=== PATIENT | female | born 1990 | race Caucasian/White ===

== ENCOUNTER 2021-09-07 09:17 | Outpatient (CLI) | payer BC, SELFPAY ==
--- NOTE | 2021-09-07 09:15 | US_ITS ---
Patient: MAGDALENA DILLARD Facility:?[facility] Patient ID:?[id number] Site Patient ID:?[id number]. Site :?1990 Study:?US-OB Pelvis -09/07/2021 12:10:36 PM Ordering Physician:JERSON HENDERSON Final Report: INDICATION: Evaluate anatomy. COMPARISON: 06/24/2021 TECHNIQUE: Real time venegas scale imaging of the fetus was performed as well as color Doppler analysis of the umbilical vessels. FINDINGS: Sonographic imaging demonstrates a single living intrauterine gestation. Fetus demonstrates a regular cardiac rate of 161 beats per minute. Fetus has a vertex position. The placenta lies posteriorly. With transvaginal technique, the edge of the placenta is located 1.5 cm from the internal cervical os. Amniotic fluid volume appears normal. Single deepest vertical pocket: 3.5 cm. The cervix is closed and measures 3.9 cm in length. The composite ultrasound gestational age is calculated at 19 weeks 5 days with an estimated sonographic due date of 01/27/2022. The estimated weight is 305 grams which lies at the 12th %. The following biometric measurements were obtained: Biparietal diameter: 4.5 cm/19 weeks 5 days 22nd% Head circumference: 17.4 cm/20 weeks 0 days 21st% Abdominal circumference: 14.1 cm/19 weeks 4 days 17th% Femur length: 3.1 cm/19 weeks 5 days 20th% The HC/AC ratio measures: 1.23 range (1.08-1.26) On anatomic survey, there is a normal appearance of the cavum septi pellucidi, cisterna magna and cerebellum. Mild ventriculomegaly may be present measuring up to 13 millimeters. The nose, lips, and facial profile appear normal. The cervical, thoracic and lumbar spine are well visualized and appear normal. There is a normal four-chamber heart view and the left and right ventricular outflow tracts appear normal. The diaphragm and stomach appear normal. The kidneys and bladder also appear normal. There is a normal three-vessel cord and cord insertion site. The four extremities appear normal. IMPRESSION: Mild prominence of the lateral ventricles may be present, measuring approximately 10-13 millimeters. No hemorrhage is present. Follow-up level 2 examination including dedicated neuro sonography recommended along with consideration of TORCH testing. Low-lying placenta with the edge of the placenta 1.5 cm away from the internal cervical os on transvaginal imaging. Sonographic gestational age 19 weeks 5 days and sonographic due date 01/27/2022. Sonographic age is 5 days behind the clinical age. Estimated weight 12th percentile. Abdominal circumference 17th percentile. Dictated by Denny Billingsley MD @ 09/07/2021 12:23:02 PM Signed by:?Denny Billingsley MD @09/07/2021 12:23:02 PM (Electronic Signature)
== END 2021-09-07 09:18 | disposition home or self-care (01) ==
LOC: US 09:21
PROVIDERS: PCP Pediatrics; Visit Provider Registered Nurse
DX: O44.42 Low lying placenta NOS or without hemorrhage, second trimester (principal); Z3A.20 20 weeks gestation of pregnancy
CPT/HCPCS: 76805; 76817

== ENCOUNTER 2021-09-07 11:15 | Outpatient (CLI) | payer BC, SELFPAY | END 2021-09-07 11:16 | disposition home or self-care (01) | PROVIDERS: PCP Pediatrics; Visit Provider Obstetrics & Gynecology | DX: Z34.92 Encounter for supervision of normal pregnancy, unspecified, second trimester (principal); Z3A.19 19 weeks gestation of pregnancy | CPT/HCPCS: 76805; 76817; 82105 ==

== ENCOUNTER 2021-09-21 12:28 | Outpatient (CLI) | payer BC, SELFPAY | END 2021-09-21 12:29 | disposition home or self-care (01) | LOC: US 12:28 | PROVIDERS: PCP Pediatrics; Visit Provider Pediatrics Neonatal-Perinatal Medicine | DX: Z34.92 Encounter for supervision of normal pregnancy, unspecified, second trimester (principal); Z3A.22 22 weeks gestation of pregnancy; O44.42 Low lying placenta NOS or without hemorrhage, second trimester | CPT/HCPCS: 76816; 76820 ==

== ENCOUNTER 2021-10-19 09:48 | Outpatient (CLI) | payer BC, SELFPAY ==
--- NOTE | 2021-10-19 09:45 | CRLHL7_ITS ---
For Patients: As a result of the Century Cures Act, medical imaging exams and procedure reports are released immediately into your electronic medical record. You may view this report before your referring provider. If you have questions, please contact your health care provider. INDICATION: IUGR TECHNIQUE: Real time venegas scale imaging of the fetus was performed as well as color Doppler and spectral Doppler analysis of the umbilical artery. COMPARISON: 09/21/21, 09/07/2021 FINDINGS: Sonographic imaging demonstrates a single living intrauterine gestation. Fetus demonstrates a regular cardiac rate of 163 beats per minute. Fetus has a vertex position. The placenta lies posteriorly. Amniotic fluid volume appears normal and there is a single deepest pocket of 5.5 cm. The estimated weight is 839gm which lies at the 14th %. On the prior OB ultrasound dated 09/07/2021 the estimated weight was at the 12th percentile. There is adequate diastolic blood flow within the umbilical artery. The S/D ratio measures 2.5. BPD 6th percentile. HC 7th percentile. AC 32nd percentile. FL 8th percentile. The fetus was active and demonstrated normal breathing movements. There was normal flexion and extension of the trunk and extremities. IMPRESSION: Normal biophysical profile score 8/8. Sonographic gestational age 25 weeks 3 days and sonographic due date of 01/29/2022. Sonographic age 1 week behind the clinical age. Estimated weight 14th percentile. Abdominal circumference 32nd percentile. Dictated by Denny Billingsley MD @ 10/19/2021 11:35:17 AM (Electronically Signed)
== END 2021-10-19 09:49 | disposition home or self-care (01) ==
LOC: US 09:49
PROVIDERS: PCP Pediatrics; Visit Provider Obstetrics & Gynecology
DX: O36.5990 Maternal care for other known or suspected poor fetal growth, unspecified trimester, not applicable or unspecified (principal); Z3A.25 25 weeks gestation of pregnancy
CPT/HCPCS: 76816; 76819; 76820

== ENCOUNTER 2021-11-04 09:50 | Outpatient (CLI) | payer BC, SELFPAY ==
[2021-11-07 01:15] LABS: Rapid Plasma Reagin (RPR) Non Reactive (Non Reactive)
== END 2021-11-04 09:51 | disposition home or self-care (01) ==
PROVIDERS: PCP Pediatrics; Visit Provider Obstetrics & Gynecology
DX: O26.899 Other specified pregnancy related conditions, unspecified trimester (principal); Z67.91 Unspecified blood type, Rh negative; Z3A.28 28 weeks gestation of pregnancy
CPT/HCPCS: 86592; 86850

== ENCOUNTER 2021-11-18 08:16 | Outpatient (CLI) | payer BC, SELFPAY ==
--- NOTE | 2021-11-18 08:15 | CRLHL7_ITS ---
For Patients: As a result of the Century Cures Act, medical imaging exams and procedure reports are released immediately into your electronic medical record. You may view this report before your referring provider. If you have questions, please contact your health care provider. INDICATION: IUGR TECHNIQUE: Real time venegas scale imaging of the fetus was performed as well as color Doppler and spectral Doppler analysis of the umbilical artery. COMPARISON: 10/19/2021 FINDINGS: Sonographic imaging demonstrates a single living intrauterine gestation. Fetus demonstrates a regular cardiac rate of 163 beats per minute. Fetus has a vertex position. The placenta lies posteriorly. Amniotic fluid volume appears normal and there is a single deepest pocket of 4.5 cm. The estimated weight is 1422gm which lies at the 10th %. On the prior OB ultrasound dated 10/19/2021 the estimated weight was at the 14th percentile. There is adequate diastolic blood flow within the umbilical artery. The S/D ratio measures 2.9. BPD 39th percentile. HC 25th percentile. AC 14th percentile. FL 6th percent. The fetus was active and demonstrated normal breathing movements. There was normal flexion and extension of the trunk and extremities. IMPRESSION: Normal biophysical profile score 8/8. Sonographic gestational age 30 weeks 1 day and sonographic due date of 01/26/2022. Sonographic age 4 days behind the clinical age. Estimated weight 10th percentile. Abdominal circumference 14th percentile. Dictated by Denny Billingsley MD @ 11/18/2021 10:09:07 AM (Electronically Signed)
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
--- OUTSIDE RECORDS SUMMARY | 2021-11-18 08:18 | XMS_ITS ---
:1990 Author Care Team Providers Name Role Phone Ab Jean Primary Care Provider Unavailable Allergies Code Code System Name Reaction Severity Status Onset NKDA ? Medications Name Status Start Date Stop Date ? ? cephalexin 500 mg capsule Active ? Not av ailable methenamine hippurate 1 gram tablet Active ? Not available trospium ER 60 mg capsule,extended release 24 hr Active ? Not available Problems No Known Problems Procedures None recorded. Results Lab Results Date Name Specimen Result Interpretation Description Value Range Status Address ? 12/22/2020 SARS CoV 2 RNA, Nose (nasal ? Result negative ? ? [facility], [place]+probe, passage) [facility] Nose [place]: [address] , [place] Past Encounters 12/22/2020 Exposure to SARS-CoV-2 Ab Jean [place]: [address], [address], [place] [address], Ph. Social History Tobacco Smoking Status Never Smoker Vaccine List Vaccine Type COVID-19, mRNA, LNP-S, PF, 30 mcg/0.3 mL dose ([employer]) 08/13/2020 09/03/2020 HPV, quadrivalent 11/01/2007 09/17/2008 10/08/2009 meningococcal MCV4P 11/01/2007 Td (adult), adsorbed 10/13/2003 Tdap 10/26/2010 Plan of Care Patient Instructions Discussed rapid covid results with ramin ent. No treatment indicated as patient is asymptomatic. Patient in agreement and understanding. All questions answered. RTC as needed. Reminders Provider Appointments None recorded. ? ? Lab None recorded. ? ? Referral None recorded. ? ? Procedures None recorded. ? ? Surgeries None recorded. ? ? Imaging None recorded. ? ? Vitals Blood Pressure 99/68 mm[Hg]
== END 2021-11-18 08:17 | disposition home or self-care (01) ==
LOC: US 08:16
PROVIDERS: PCP Pediatrics; Visit Provider Obstetrics & Gynecology
DX: O36.5930 Maternal care for other known or suspected poor fetal growth, third trimester, not applicable or unspecified (principal); Z3A.30 30 weeks gestation of pregnancy
CPT/HCPCS: 76816; 76819; 76820

== ENCOUNTER 2021-12-16 13:04 | Outpatient (CLI) | payer BC, SELFPAY ==
--- NOTE | 2021-12-16 13:00 | CRLHL7_ITS ---
For Patients: As a result of the Cures Act, medical imaging exams and procedure reports are released immediately into your electronic medical record. You may view this report before your referring provider. If you have questions, please contact your health care provider. INDICATION: SMALL FOR GESTATIONAL AGE TECHNIQUE: Real time venegas scale imaging of the fetus was performed as well as color Doppler and spectral Doppler analysis of the umbilical artery. COMPARISON: 11/18/2021 FINDINGS: Sonographic imaging demonstrates a single living intrauterine gestation. Fetus demonstrates a regular cardiac rate of 129 beats per minute. Fetus has a vertex position. The placenta lies posteriorly. Amniotic fluid volume appears normal and there is a single deepest pocket of 3.0 cm. The estimated weight is 2080gm which lies at the 8th %. On the prior OB ultrasound dated 11/18/2021 the estimated weight was at the 10th percentile. There is adequate diastolic blood flow within the umbilical artery. The S/D ratio measures 2.6. The fetus was active and demonstrated normal breathing movements. There was normal flexion and extension of the trunk and extremities. IMPRESSION: Normal biophysical profile score 8/8. Sonographic due date 33 weeks 2 days and sonographic due date of 02/01/2022. Sonographic age 10 days ahead of the clinical age. Estimated weight 8th percentile. Abdominal circumference 10th percentile. Dictated by Denny Billingsley MD @ 12/19/2021 10:25:55 AM (Electronically Signed)
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
== END 2021-12-16 13:05 | disposition home or self-care (01) ==
LOC: US 13:04
PROVIDERS: PCP Pediatrics; Visit Provider Obstetrics & Gynecology
DX: O36.5930 Maternal care for other known or suspected poor fetal growth, third trimester, not applicable or unspecified (principal); Z3A.33 33 weeks gestation of pregnancy
CPT/HCPCS: 76816; 76819; 76820

== ENCOUNTER 2021-12-23 10:47 | Outpatient (CLI) | payer BC, SELFPAY ==
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
[2021-12-24 13:02] LABS: Strep B DNA Probe NEGATIVE (Negative)
== END 2021-12-23 10:48 | disposition home or self-care (01) ==
PROVIDERS: PCP Pediatrics; Visit Provider Obstetrics & Gynecology
DX: Z34.93 Encounter for supervision of normal pregnancy, unspecified, third trimester (principal); Z3A.35 35 weeks gestation of pregnancy
CPT/HCPCS: 76819; 76820; 87081; 87653

== ENCOUNTER 2021-12-30 07:25 | Outpatient (CLI) | payer BC, SELFPAY ==
--- NOTE | 2021-12-30 07:15 | CRLHL7_ITS ---
For Patients: As a result of the Century Cures Act, medical imaging exams and procedure reports are released immediately into your electronic medical record. You may view this report before your referring provider. If you have questions, please contact your health care provider. INDICATION: IUGR COMPARISON: 12/23/2021 TECHNIQUE: Real time venegas scale imaging of the fetus was performed as well as color Doppler and spectral Doppler analysis of the umbilical artery. Without non-stress testing. FINDINGS: Sonographic imaging demonstrates a single living intrauterine gestation. Fetus demonstrates a regular cardiac rate of 157 beats per minute. Fetus has a vertex position. The umbilical artery demonstrates adequate diastolic blood flow. The S/D ratio measures 2.6. The amniotic fluid volume appears normal and there is a single deepest pocket measurement of 3.7 cm. The fetus was active and demonstrated normal breathing movements. There was normal flexion and extension of the trunk and extremities. IMPRESSION: Normal biophysical profile score of 8 out of 8. Dictated by Denny Billingsley MD @ 12/30/2021 8:47:57 AM (Electronically Signed)
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
== END 2021-12-30 07:26 | disposition home or self-care (01) ==
PROVIDERS: PCP Pediatrics; Visit Provider Obstetrics & Gynecology
DX: O36.5990 Maternal care for other known or suspected poor fetal growth, unspecified trimester, not applicable or unspecified (principal)
CPT/HCPCS: 76819; 76820

== ENCOUNTER 2022-01-04 10:30 | Outpatient (CLI) | payer BC, SELFPAY ==
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
--- NOTE | 2022-01-04 11:00 | CRLHL7_ITS ---
For Patients: As a result of the Century Cures Act, medical imaging exams and procedure reports are released immediately into your electronic medical record. You may view this report before your referring provider. If you have questions, please contact your health care provider. INDICATION: RT THIGH PAIN IN TECHNIQUE: Ultrasound venous duplex right lower extremity. COMPARISON: None. FINDINGS: The right common femoral, superficial femoral, deep femoral, popliteal, posterior tibial, and greater saphenous veins are fully compressible with normal waveforms. The contralateral left common femoral artery is fully compressible with normal waveform. No masses evident. IMPRESSION: Normal ultrasound of the right lower extremity veins. Dictated by: Denny Andres MD @ 01/04/2022 11:29:22 (Electronically Signed)
== END 2022-01-04 10:31 | disposition home or self-care (01) ==
PROVIDERS: PCP Pediatrics; Visit Provider Obstetrics & Gynecology
DX: O26.899 Other specified pregnancy related conditions, unspecified trimester (principal); M79.651 Pain in right thigh
CPT/HCPCS: 93971

== ENCOUNTER 2022-01-06 09:23 | Outpatient (CLI) | payer BC, SELFPAY ==
--- NOTE | 2022-01-06 09:15 | CRLHL7_ITS ---
For Patients: As a result of the Century Cures Act, medical imaging exams and procedure reports are released immediately into your electronic medical record. You may view this report before your referring provider. If you have questions, please contact your health care provider. INDICATION: IUGR TECHNIQUE: Real time venegas scale imaging of the fetus was performed as well as color Doppler and spectral Doppler analysis of the umbilical artery. COMPARISON: 12/16/2021 FINDINGS: Sonographic imaging demonstrates a single living intrauterine gestation. Fetus demonstrates a regular cardiac rate of 142 beats per minute. Fetus has a vertex position. The placenta lies posteriorly. Amniotic fluid volume appears normal and there is a single deepest pocket of 3.7 cm. The estimated weight is 2580gm which lies at the 7th %. On the prior OB ultrasound dated 12/16/2021 the estimated weight was at the 8th percentile. There is adequate diastolic blood flow within the umbilical artery. The S/D ratio measures 2.8. BPD 11th percentile. HC 3rd present. AC 9th percentile. FL less than 3rd percentile. The fetus was active and demonstrated normal breathing movements. There was normal flexion and extension of the trunk and extremities. IMPRESSION: Normal biophysical profile score 8/8. Sonographic gestational age 35 weeks 1 day and sonographic due date 02/09/2022. Sonographic age 18 days behind the clinical age. Estimated weight 7th percentile. Abdominal circumference 9th percentile. Dictated by Denny Billingsley MD @ 01/06/2022 12:54:04 PM (Electronically Signed)
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
== END 2022-01-06 09:24 | disposition home or self-care (01) ==
LOC: US 09:24
PROVIDERS: PCP Pediatrics; Visit Provider Obstetrics & Gynecology
DX: O36.5930 Maternal care for other known or suspected poor fetal growth, third trimester, not applicable or unspecified (principal); Z3A.35 35 weeks gestation of pregnancy
CPT/HCPCS: 76816; 76819; 76820

== ENCOUNTER 2022-01-13 07:10 | Inpatient (IN) | payer BC, SELFPAY ==
[2022-01-13] VITALS (93 sets, daily range): BP systolic 96–191; BP diastolic 51–133; PULSE 50–100; RESP 16–20; TEMP 36.3–37.1; O2SAT 87–100; BMI 23.1
[2022-01-13 08:29] LABS: Basophils Absolute Auto 0.02 K/uL (0.00-0.30); Basophils Percent Auto 0.4 % (0.0-3.0); Eosinophils Absolute Auto 0.12 K/uL (0.00-0.50); Eosinophils Percent Auto 2.2 % (0.0-7.0); Hematocrit 34.9 % (33.0-51.0); Hemoglobin* 12.1 gm/dL (12.0-16.0); Immature Granulocytes Abs Auto 0.06 K/uL (0.00-0.30); Immature Granulocytes Pct Auto 1.1 %; Lymphocytes Absolute Auto 1.53 K/uL (0.90-2.90); Mean Corpuscular HGB Conc 35 gm/dL (32-36); Mean Corpuscular Hemoglobin 33 pg (26-34); Mean Corpuscular Volume 94 fL (80-100); Monocytes Percent Auto 10.3 % (0.0-11.0); Neutrophils Absolute Auto 3.17 K/uL (1.7-7.0); Platelet Count* 133 K/uL (140-440); RDW Coefficient of Variation % 12.2 % (11.5-15.5); White Blood Count* 5.46 K/uL (4.50-11.00)
[2022-01-13 08:36] LABS: SARS PCR* Negative SARS-CoV-2 (Negative)
[2022-01-13 08:45] LABS: Slide Review Reflex No
[2022-01-13] MEDS: LACTATED RINGERS 1000 ML 1,000 ML 125 ML IV ×4 (09:33→20:01)
[2022-01-13] MEDS: OXYTOCIN 30 unit/500 ML in NS 30 UNIT/500 ML BAG IVPB (09:33)
--- NOTE | 2022-01-13 09:43 | P.OBHP_ITS ---
OB - H&P: HPI Labor/Induction History of Present Illness Time Seen by Provider: 09:44 Date Seen: 01/13/22 Chief Complaint: HPI: Sherin is a 31-year-old 2 para 1 at 38 weeks 5 days gestation. She is being admitted for an induction of labor due to IUGR. Her membranes are intact. GBS negative. Her complete history and physical was completed by Dr. Chelsey Sherwood on 12/30/2021, please see that note for complete details. OB PROBLEM LIST Spouse: Carlo. Boy at home: Carlo. Baby: Girl. Blood type: A negative 1. Depression/anxiety/ADD - managed by psychiatry * currently doing well off medication. 2. Frequent UTIs. None this . 3. Low BMI, 18.4 4. Rh negative * Rhogam: 11/04/21 5. IUGR. * Isolated ventriculomegaly noted on FAS 09/07/21, bilateral. EFW: 12%. * MaterniT 21: No increased risk for aneuploidy. * Maternal serum AFP: No increased risk for ONTD * Level 2 ultrasound 09/21/21: normal ventricles, EFW 10%. * 10/19/21: Vtx, BPP 8/8. SDP: 5.5cm. EFW: 839g, 1 lb 14 oz, 14%. BPD 6%, HC 7%, AC 32%, FL 8%. * 11/18/21 30 weeks: Vtx. BPP 8/8. SDP 4.5 cm. EFW 1422 g, 3 lb 2 oz, 10.2%. BPD 39%, HC 25%, AC 14%, FL 5.6%. Umbilical artery S/D ratio: 2.9 = normal. Suggestive of asymmetric growth. Does not quite meet criteria for IUGR as EFW is not < 10%. * 12/16/21 EFW, BPP, Doppler studies @ 34 wks: EFW 8 %. BPD 25%, HC 9%, AC 10%, FL 3%. SD ratio 2.6 (<3.5) BPP 8/8. SDP: 3.0cm. * Begin bi-weekly testing with NST / BPP with UA dopplers. * NST Tuesdays, BPP Fridays with clinic visit to follow * Repeat US for EFW in 38th week before committing to IOL per patient request: 01/06/22: EFW: 7 percentile, BPD: 11 percentile, HC: 3rd percentile, a/c: 9 percentile, FL: Less than the 3rd percentile. Single deepest pocket of amniotic fluid 3.7 cm normal. Umbilical artery SD ratio 2.8 normal. BPP 8/8. Reassuring 6. Low-lying placenta, 1.3 cm from the internal cervical os on FAS * Level 2 US 09/21/21: resolved, posterior placenta 4.9 cm from os 7. Infected 2nd degree laceration after first delivery. 8. Hip pain, right thigh venous varicose veins: Doppler US on 01/04/22 negative for DVT Rhogam: 11/04/2021 Tdap: 11/18/21 OBJECTIVE: Vital signs per medical record. Heart: Regular rate and rhythm without gallop, rub or murmur. Chest: Clear to auscultation bilaterally without wheezes, rales or rhonchi. Abdomen: Gravid and nontender. Normal bowel sounds throughout. EFM: Baseline 130's, (positive) accels, (negative) decels, moderate variability. Reactive Category 1 TOCO: Sporadic contractions SVE: 3 cm/80 %/-1/soft/anterior. Tony score: 11 Extremities: No pain, edema or cyanosis. ASSESSMENT: 31-year-old 2 para 1001 at 38 weeks 5 days gestation admitted for induction of labor due to IUGR. PLAN: 1. The patient desires epidural for analgesia in labor. 2. GBS negative. 3. Expect vaginal delivery. 4. Planning AROM after the patient received an epidural she had severe painful contractions with her 1st delivery after AROM. 5. Blood type: A negative. Chief complaint: IOL for IUGR Narrative: Sherin Nieves is a 31 year old female Meds Home Medications and Allergies Home Medications Medication Instructions Recorded Confirmed Type acetaminophen 500 mg tablet 500 mg PO Q6H PRN 09/07/21 01/11/22 History docosahexaenoic acid 200 mg See Rx Instructions PO QDAY 09/07/21 01/11/22 History capsule ( DHA) ferrous gluconate 324 mg (38 mg 324 mg PO DAILY 09/07/21 01/11/22 History iron) tablet Allergies Allergy/AdvReac Type Severity Reaction Status Date / Time doxycycline Allergy Intermediate Facial Verified 01/11/22 09:21 swelling OB - H&P: Exam Physical Exam: Vital signs: Temp Pulse Resp BP Pulse Ox 98 F 73 20 111/81 99 01/13/22 07:27 01/13/22 07:25 01/13/22 07:27 01/13/22 07:25 01/13/22 07:25 OB - Results Labs Labs: Short CBC 01/13/22 Range/Units 08:10 WBC 5.46 (4.50-11.00) K/uL Hgb 12.1 (12.0-16.0) gm/dL Hct 34.9 (33.0-51.0) % Plt Count 133 L (140-440) K/uL
[2022-01-13] MEDS: LIDOCAINE 2% (PF) 5 ML VIAL EPIDURAL (15:45)
[2022-01-13] MEDS: ROPIVACAINE 0.2% 100 ml 100 ML 12 MG EPIDURAL (15:45)
--- NOTE | 2022-01-13 15:56 | PM.ANBPRC ---
[facility] Medical History (Updated 12/30/21 @ 09:05 by Chelsey Sherwood MD) ADD (attention deficit disorder) Depression with anxiety IUGR (intrauterine growth restriction) Recurrent UTI Seasonal allergies Uterovaginal prolapse Family History (Updated 12/30/21 @ 08:42 by Chelsey Sherwood MD) Other Colon cancer Heart disease Osteoporosis Thyroid disease Social History (Updated 12/30/21 @ 08:43 by Chelsey Sherwood MD) Narrative: Lives in [place] with 3.5 yr old son and . 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 No tobacco, alcohol or drug use during . Smoking Status: Never smoker Meds Home Medications and Allergies Home Medications Medication Instructions Recorded Confirmed Type acetaminophen 500 mg tablet 500 mg PO Q6H PRN 09/07/21 01/11/22 History docosahexaenoic acid 200 mg See Rx Instructions PO QDAY 09/07/21 01/11/22 History capsule ( DHA) ferrous gluconate 324 mg (38 mg 324 mg PO DAILY 09/07/21 01/11/22 History iron) tablet Allergies Allergy/AdvReac Type Severity Reaction Status Date / Time doxycycline Allergy Intermediate Facial Verified 01/11/22 09:21 swelling Results Labs Labs: Laboratory Results - last 24 hr 01/13/22 01/13/22 01/13/22 07:27 08:10 08:10 WBC 5.46 RBC 3.70 L Hgb 12.1 Hct 34.9 MCV 94 MCH 33 MCHC 35 RDW Coeff of Antoine 12.2 Plt Count 133 L Neut % (Auto) 58.0 Lymph % (Auto) 28.0 [place] % (Auto) 10.3 Eos % (Auto) 2.2 Baso % (Auto) 0.4 Neut # (Auto) 3.17 Lymph # (Auto) 1.53 [place] # (Auto) 0.60 Eos # (Auto) 0.12 Baso # (Auto) 0.02 Abs Immat Gran (auto) 0.06 Imm/Tot Granulo (auto) 1.1 SARS-CoV-2 (PCR) Negative SARS-CoV-2 Blood Type A Negative Antibody Screen POSITIVE Antibody Identification Anti-D Vital Signs Vital Signs: Last Vital Signs Temp 98.6 F 01/13/22 13:05 Pulse 66 01/13/22 15:53 Resp 18 01/13/22 13:05 BP 117/64 01/13/22 15:53 Pulse Ox 98 01/13/22 15:53 Weight: 59.222 kg Height: 160.02 cm Anesthesia Procedures Epidural Insertion Patient Location: OB Start Time: 15:00 Stop Time: 16:00 Start Date: 01/13/22 Stop Date: 01/13/22 Reason for Block: procedure for pain Patient Position: sitting Performed By: Michaela Michael Preanesthetic Checklist: IV checked, risks and benefits discussed, monitors and equipment checked, pre-op evaluation, timeout performed and anesthesia consent Prep: chlorhexidine gluconate Monitoring: blood pressure monitoring, continuous pulse oximetry and heart rate Approach: midline Vertebral Space: lumbar (1-5) Epidural Technique: ODELL saline Needle Type: Tuohy needle Injection Technique: continuous catheter (continuous catheter) Needle gauge: 17 Needle Length (cm): 10 cm Needle Insertion Depth (cm): 5 Catheter Gauge: 19 Catheter Type: multi-orifice Catheter at skin depth (cm): 14 Test Dose Result: negative and lidocaine 1.5% with epinephrine 1 to 200,000
--- NOTE | 2022-01-13 16:57 | PM.OBPNL ---
Subjective Time Seen by Provider: 16:58 Date Seen: 01/13/22 Narrative: Subjective: Patient is comfortable w/ epidural/uncomfortable with contractions. Pitocin: 9 milliunits/minute. Verbal consent obtained to perform artificial rupture membranes. Vital signs: Per electronic medical record. EFM: Baseline 120s, (+) accelerations, (-) decelerations, moderate variability, reactive. Category 1. [place]: Contractions every 2-3 minutes. SVE: 5 cm/80 %/0. AROM: Small amount of clear fluid. Assessment: 31-year-old 4 para 1021 at 38 weeks 5 days gestation induction of labor due to IUGR Plan: 1. Continue Pitocin per labor induction protocol. 2. Expect vaginal delivery Objective Vital Signs: Last Vital Signs Temp 98.6 F 01/13/22 13:05 Pulse 74 01/13/22 16:44 Resp 18 01/13/22 13:05 BP 100/56 L 01/13/22 16:44 Pulse Ox 99 01/13/22 15:58
[2022-01-13] MEDS: miSOPROStoL 800 MCG/4 TABLET PR (19:40)
[2022-01-13] MEDS: METHYLERGONOVINE MALEATE 0.2 MG/ML INJ IM ×2 (19:43→19:59)
[2022-01-13] MEDS: TRANEXAMIC ACID 100 MG/ML INJ 1000 MG IV (19:45)
[2022-01-13 20:25] LABS: Basophils Absolute Auto 0.04 K/uL (0.00-0.30); Basophils Percent Auto 0.4 % (0.0-3.0); Eosinophils Absolute Auto 0.12 K/uL (0.00-0.50); Eosinophils Percent Auto 1.3 % (0.0-7.0); Hemoglobin* 11.7 gm/dL (12.0-16.0); Immature Granulocytes Abs Auto 0.08 K/uL (0.00-0.30); Immature Granulocytes Pct Auto 0.9 %; Lymphocytes Absolute Auto 2.38 K/uL (0.90-2.90); Lymphocytes Percent Auto 26.4 % (20-44); Mean Corpuscular HGB Conc 34 gm/dL (32-36); Mean Corpuscular Hemoglobin 33 pg (26-34); Mean Corpuscular Volume 96 fL (80-100); Monocytes Percent Auto 8.4 % (0.0-11.0); Neutrophils Absolute Auto 5.65 K/uL (1.7-7.0); Neutrophils Percent Auto 62.6 % (42.0-72.0); Platelet Count* 147 K/uL (140-440); RDW Coefficient of Variation % 12.5 % (11.5-15.5); Red Blood Count 3.54 m/uL (4.00-5.20); White Blood Count* 9.03 K/uL (4.50-11.00)
[2022-01-13 20:40] LABS: INR 0.87 (0.91-1.10); Prothrombin Time 12.4 Seconds
[2022-01-13 20:41] LABS: Partial Thromboplastin Time* 29 Seconds (23-33)
--- NOTE | 2022-01-13 20:41 | P.OBPRC_ITS ---
Procedure Delivery date: 01/13/22 Procedure Done: Global Procedure Details: Sherin is a 31 year-old G for P 1021 now to admitted on 01/13/2022 at 7:00 a.m. at 38 Weeks, 5 Days gestation for induction of labor for IUGR.. AROM occurred at 4:30 p.m. on 01/13/2022 with clear fluid. Labor Analgesia: Epidural Pitocin: Yes Labor onset: 01/13/2022 at 12:00 p.m.. Complete: 01/13/2022 at 7:10 p.m.. Pushin01/13/2022 at 7:15 p.m.. heart tones during second stage were: Category 1: Moderate variability with accelerations and no decelerations. At 7:32 p.m. a viable female infant delivered in vertex direct OA presentation over intact perineum via spontaneous vaginal delivery. The was placed on maternal abdomen. Cord was clamped and cut after a 60+ second delay. Nose and mouth were bulb suctioned. weight 5 lb 15 oz/2700 g. 9 at 1 min marty and 9 at 5 minutes. Shoulder dystocia: No. Nuchal cord: No Placenta delivered spontaneously and complete at 9:46 p.m. with a 3 vessel cord. Immediate uterine atony after delivery of the placenta. This was treated with 30 units Pitocin in 500 mL saline wide open, Methergine 0.2 mg IM x2, 800 mg Cytotec MI, TXA 1 g IV. After medications were given lower uterine segment continued to be atonic and a Cook catheter was placed in the lower uterine segment and the mL of saline instilled into the uterine balloon. The patient became very pale and had 1 episode of emesis. Stat CBC, PTT, PT/INR and fibrinogen were ordered and massive transfusion protocol initiated. Patient received 1 unit O negative packed red blood cells, 1 unit cross matched (A negative) and 1 uFFP. Patient was never tachycardic and blood pressure was difficult to assess due to tremors. Manual blood pressure at 8:30 p.m.: 140/68. Laceration(s): None. Blood loss: 1,046 mL. Blood loss measurement type: Quantitative. Sponge and needles counts are correct. Specimen: Placenta Mother and infant were stable after delivery. 's name: Pending The patient is planning on breast feeding. Events: Other (IUGR) Intrapartal Events: None Induction method: AROM Delivery monitor: external FHT and external uterine Route of delivery: Laceration description: None Anesthesia type: Epidural Infant Infant Gender: Female presentation: vertex Cord Description: 3 Vessels
[2022-01-13 20:42] LABS: Slide Review Reflex No
[2022-01-13 20:58] LABS: Fibrinogen* 399 mg/dL (200-450)
[2022-01-13] MEDS: ONDANSETRON 2 MG/ML inj 4 MG IV (22:35)
[2022-01-14] MEDS: ACETAMINOPHEN 500 MG TABLET 1000 MG PO ×3 (00:07→20:00)
[2022-01-14 00:13] VITALS: BP 128/84; PULSE 58; RESP 16; TEMP 37.1; O2SAT 96
--- NOTE | 2022-01-14 02:53 | PC.NURSE ---
Massive transfusion protocol inited at 2009. 1 unit of O- blood unit ([id number]), rapidly given from 2031 to 2131. Verified with Conchita Strong RN
[2022-01-14 03:39] VITALS: BP 114/73; PULSE 56; RESP 16; TEMP 37.1; O2SAT 93
[2022-01-14] MEDS: IBUPROFEN 600 MG TABLET PO ×2 (03:41→15:20)
[2022-01-14 04:55] LABS: Basophils Percent Auto 0.2 % (0.0-3.0); Eosinophils Percent Auto 0.2 % (0.0-7.0); Hematocrit 36.2 % (33.0-51.0); Hemoglobin* 12.6 gm/dL (12.0-16.0); Immature Granulocytes Pct Auto 0.2 %; Lymphocytes Percent Auto 13.5 % (20-44); Mean Corpuscular HGB Conc 35 gm/dL (32-36); Mean Corpuscular Hemoglobin 32 pg (26-34); Mean Corpuscular Volume 92 fL (80-100); Monocytes Percent Auto 6.3 % (0.0-11.0); Neutrophils Percent Auto 79.6 % (42.0-72.0); Platelet Count* 92 K/uL (140-440); RDW Coefficient of Variation % 12.8 % (11.5-15.5); Red Blood Count 3.92 m/uL (4.00-5.20); White Blood Count* 12.15 K/uL (4.50-11.00)
[2022-01-14 04:56] LABS: Slide Review Reflex No
[2022-01-14 05:13] LABS: Partial Thromboplastin Time* 30 Seconds (23-33)
[2022-01-14 05:15] LABS: INR 0.94 (0.91-1.10); Prothrombin Time 13.2 Seconds
[2022-01-14 05:29] LABS: Fibrinogen* 367 mg/dL (200-450)
[2022-01-14 07:30] VITALS: BP 106/58; PULSE 56; RESP 18; TEMP 36.6; O2SAT 95
[2022-01-14] MEDS: DOCUSATE SODIUM 100 MG CAPSULE PO (08:48)
--- NOTE | 2022-01-14 10:13 | P.OBPN_ITS ---
OB - PN:Subj Subjective Date Seen: 01/14/22 Patient comments OB post-: pain well controlled and tolerating diet Remington status: and doing well Remington feeding status: exclusively Narrative: Patient states to be feeling much better this morning.Bakri balloon was removed this morning and Bleeding has remained as a menstrual period. Currently patient has been able to walk around the room without any lightheadedness, shortness of breath, heart palpitations. Lab work this morning hemoglobin is normal, platelets dropped to 92,000, coagulations continue to be normal. Patient has had normal vital signs, no hypertension, no tachycardia. OB - PN: Obj Exam Physical Exam: Vital signs: Temp Pulse Resp BP Pulse Ox O2 Del Method 97.9 F 56 L 18 106/58 L 95 01/14/22 07:30 01/14/22 07:30 01/14/22 07:30 01/14/22 07:30 01/14/22 07:30 01/14/22 07:30 Narrative: VITAL SIGNS: As noted above. GENERAL APPEARANCE: Alert, cooperative female in no acute distress. MOOD & AFFECT: Normal. ABDOMEN: Soft, non-distended and nontender. : Normal pp lochia EXTREMITIES: Nonedematous. Well perfused. Nontender. Urinary Catheter Management: Urethral: Cath placed during this visit: yes, but has since been removed by the nurse Reason for continuing: decision to DC catheter Insertion date: 01/13/22 Insertion time: 20:50 Removal date: 01/14/22 Removal time: 08:30 OB - PN: Obj Data Labs Labs: Laboratory Results - last 24 hr 01/13/22 01/13/22 01/13/22 08:10 20:20 20:20 WBC 9.03 RBC 3.54 L Hgb 11.7 L Hct 34.0 MCV 96 MCH 33 MCHC 34 RDW Coeff of Antoine 12.5 Plt Count 147 Neut % (Auto) 62.6 Lymph % (Auto) 26.4 [place] % (Auto) 8.4 Eos % (Auto) 1.3 Baso % (Auto) 0.4 Neut # (Auto) 5.65 Lymph # (Auto) 2.38 [place] # (Auto) 0.80 Eos # (Auto) 0.12 Baso # (Auto) 0.04 Abs Immat Gran (auto) 0.08 Imm/Tot Granulo (auto) 0.9 INR APTT Fibrinogen 399 Blood Type Antibody Screen Antibody Identification Anti-D Crossmatch (AHG) 01/13/22 01/13/22 01/14/22 20:20 20:20 04:47 WBC RBC Hgb Hct MCV MCH MCHC RDW Coeff of Antoine Plt Count Neut % (Auto) Lymph % (Auto) [place] % (Auto) Eos % (Auto) Baso % (Auto) Neut # (Auto) Lymph # (Auto) [place] # (Auto) Eos # (Auto) Baso # (Auto) Abs Immat Gran (auto) Imm/Tot Granulo (auto) INR 0.87 L APTT 29 30 Fibrinogen Blood Type A Negative Antibody Screen POSITIVE Antibody Identification Anti-D Crossmatch ([facility]) See Detail 01/14/22 01/14/22 04:47 04:47 WBC 12.15 H RBC 3.92 L Hgb 12.6 Hct 36.2 MCV 92 MCH 32 MCHC 35 RDW Coeff of Antoine 12.8 Plt Count 92 L Neut % (Auto) 79.6 H Lymph % (Auto) 13.5 L [place] % (Auto) 6.3 Eos % (Auto) 0.2 Baso % (Auto) 0.2 Neut # (Auto) 9.70 H Lymph # (Auto) 1.60 [place] # (Auto) 0.80 Eos # (Auto) 0.00 Baso # (Auto) 0.00 Abs Immat Gran (auto) 0.00 Imm/Tot Granulo (auto) 0.2 INR 0.94 APTT Fibrinogen 367 Blood Type Antibody Screen Antibody Identification Crossmatch ([facility]) OB - PN: A/P Vaginal Delivery Assessment and Plan (1) (normal spontaneous vaginal delivery): Status: Acute (2) hemorrhage: Status: Acute Plan day 1, spontaneous vaginal delivery complicated by hemorrhage due to uterine atony. Status post 2 units of PRBCs and 1 unit of FFP. Feeling much better this morning. Will plan to repeat a CBC and coags at 12:00 p.m. to follow trend. and doing well. Continue routine cares. Plan day: 1 Plan: routine care
[2022-01-14 12:08] VITALS: BP 103/71; PULSE 59; RESP 16; TEMP 36.8; O2SAT 95
[2022-01-14 13:13] LABS: Basophils Absolute Auto 0.03 K/uL (0.00-0.30); Basophils Percent Auto 0.3 % (0.0-3.0); Eosinophils Absolute Auto 0.07 K/uL (0.00-0.50); Eosinophils Percent Auto 0.7 % (0.0-7.0); Hemoglobin* 12.7 gm/dL (12.0-16.0); Immature Granulocytes Abs Auto 0.02 K/uL (0.00-0.30); Immature Granulocytes Pct Auto 0.2 %; Lymphocytes Percent Auto 17.3 % (20-44); Mean Corpuscular HGB Conc 34 gm/dL (32-36); Mean Corpuscular Hemoglobin 32 pg (26-34); Mean Corpuscular Volume 93 fL (80-100); Monocytes Percent Auto 7.4 % (0.0-11.0); Neutrophils Percent Auto 74.1 % (42.0-72.0); Platelet Count* 99 K/uL (140-440); RDW Coefficient of Variation % 13.1 % (11.5-15.5); White Blood Count* 9.76 K/uL (4.50-11.00)
[2022-01-14 13:18] LABS: Slide Review Reflex No
[2022-01-14 13:31] LABS: INR 0.96 (0.91-1.10); Partial Thromboplastin Time* 30 Seconds (23-33); Prothrombin Time 13.4 Seconds
[2022-01-14 13:32] LABS: Fibrinogen* 427 mg/dL (200-450)
[2022-01-14 15:30] VITALS: BP 122/81; PULSE 52; RESP 18; TEMP 36.6; O2SAT 96
[2022-01-15 01:30] VITALS: BP 100/61; PULSE 60; RESP 16; TEMP 36.6; O2SAT 96
[2022-01-15 08:10] VITALS: BP 98/56; PULSE 55; RESP 16; TEMP 36.4; O2SAT 95
[2022-01-15] MEDS: DOCUSATE SODIUM 100 MG CAPSULE PO (08:27)
[2022-01-15 09:24] LABS: Basophils Absolute Auto 0.04 K/uL (0.00-0.30); Basophils Percent Auto 0.6 % (0.0-3.0); Eosinophils Absolute Auto 0.22 K/uL (0.00-0.50); Eosinophils Percent Auto 3.2 % (0.0-7.0); Hemoglobin* 11.7 gm/dL (12.0-16.0); Immature Granulocytes Abs Auto 0.05 K/uL (0.00-0.30); Immature Granulocytes Pct Auto 0.7 %; Lymphocytes Absolute Auto 1.38 K/uL (0.90-2.90); Lymphocytes Percent Auto 20.4 % (20-44); Mean Corpuscular HGB Conc 34 gm/dL (32-36); Mean Corpuscular Hemoglobin 32 pg (26-34); Mean Corpuscular Volume 93 fL (80-100); Monocytes Percent Auto 7.1 % (0.0-11.0); Neutrophils Absolute Auto 4.61 K/uL (1.7-7.0); Platelet Count* 87 K/uL (140-440); RDW Coefficient of Variation % 13.1 % (11.5-15.5); Red Blood Count 3.64 m/uL (4.00-5.20); White Blood Count* 6.78 K/uL (4.50-11.00)
[2022-01-15 09:28] LABS: Slide Review Reflex No
[2022-01-15 09:39] LABS: Alanine Aminotransferase* 14 U/L (4-35); Aspartate Amino Transferase* 25 U/L (12-35); Blood Urea Nitrogen* 11 mg/dL (5-24); Creatinine* 0.7 mg/dL (0.5-1.5); Est. Creatinine Clearance* 4.91; Estimated Glomerular Filt Rate 118 ml/min
--- NOTE | 2022-01-15 10:40 | PM.OBDSVD1 ---
DS: Providers Provider Date Seen: 01/15/22 Date of admission: 01/13/22 07:10 Primary care physician: Padmini García MD Admitting Clinician: Cary Quintanilla MD Attending Physician on discharge: Maritza Reese MD Date of Discharge: 01/15/22 DS: Diagnosis Discharge Diagnosis (1) (normal spontaneous vaginal delivery): Status: Acute (2) hemorrhage: Status: Acute (3) Transfusion of blood during current hospitalisation: Status: Acute (4) Gestational hypertension: Status: Acute Exam Narrative: Exam Narrative: VITAL SIGNS: As noted above. GENERAL APPEARANCE: Alert, cooperative female in no acute distress. MOOD & AFFECT: Normal. Chest: Clear to auscultation bilaterally, regular rate rhythm of the heart. ABDOMEN: Soft, non-distended and nontender. : Normal lochia EXTREMITIES: Nonedematous. Well perfused. Nontender. Const: Vital Signs, click to edit/add: Vital Signs - 24 hr 01/14/22 12:08 01/14/22 15:30 01/15/22 01:30 Temperature 98.3 F 97.9 F 97.9 F Pulse Rate [Pulse Oximeter] 59 L 52 L 60 Respiratory Rate 16 18 16 Blood Pressure [Ri ght Arm] 103/71 122/81 100/61 Pulse Oximetry 95 96 96 Oxygen Delivery Me thod Room Air Room Air Room Air 01/15/22 08:10 Temperature 97.5 F L Pulse Rate [Pulse Oximeter] 55 L Respiratory Rate 16 Blood Pressure [Ri ght Arm] 98/56 L Pulse Oximetry 95 Oxygen Delivery Me thod Room Air OB - DS: Summary Hospital Course Hospital Course: The patient is a 31 year old G 2 P 2003 at 390/7 weeks gestation that was admitted to the Center on 01/13/22 in labor for delivery. She had an complicated vaginal delivery. hemorrhage, status post 2 units PRBCs and 1 unit FFP. She delivered a viable female infant. She is breast feeding. the patient has done well. Patient met criteria for gestational hypertension diagnosis. Lab work showed thrombocytopenia- normal liver enzymes, normal kidney function. Findings most consistent with blood loss. Not diagnostic for HELLP syndrome. No severely elevated blood pressures, no headaches, visual changes or pain in her upper abdomen. Peripartum Data Infant delivery method: Vaginal Laceration description: None Episiotomy description: None complications: transfusion and uterine atony [place] Infant Gender: Female Discharge Plan: Home Status at Discharge Functional status at discharge: independent ambulation Overall status at discharge: patient is progressing back to baseline Time Spent with Patient Time attestation: Total time spent providing and/or coordinating discharge services: Time spent: Less than 30 minutes Discharge Plan Discharge Disposition: Home, Self-Care Date of Admission: 01/13/22 07:10 Attending Provider on Discharge: Maritza Reese Primary Care Provider: Padmini García Condition: Stable Anticipated Discharge Date/Time: 01/15/22 18:00 Discharge Medications: New docusate sodium 100 mg Capsule 100 mg PO BID PRN (Reason: Constipation) Qty: 100 0RF ibuprofen 600 mg Tablet 600 mg PO Q6H PRN30 Days Qty: 30 0RF (DME) blood pressure monitor [Blood Pressure Kit] Kit See Rx Instructions .Route Qty: 1 0RF Rx Instructions: As directed Continued ferrous gluconate 324 mg (38 mg iron) tablet 324 mg PO DAILY acetaminophen 500 mg tablet 500 mg PO Q6H PRN Rx Instructions: NO MORE THAN 4000 MG/DAY DHA 200 mg capsule See Rx Instructions PO QDAY Rx Instructions: 3 capsules PO every day; Discharge Orders: Discharge Order (Routine); Ordered 01/15/22 Ordered By: Maritza Reese Patient Education: OB Over the Counter Medication Information, OB Vaginal/Breast Feeding, Hypertension During (GEN) Additional Instructions: Discharge instructions were reviewed with the patient including signs and symptoms of infection and home going medications. Lifting Restrictions: none Exercise restrictions: None Off Work or School for a minimum of 6 weeks. Nothing vaginally for 6 weeks. Follow Up with any [facility] provider: 1. WITHIN 1 WEEK for blood pressure check 2. Physical exam at 6 weeks . consultation services are available to all mothers and babies for the first year after delivery.? To make an appointment, please call [phone]. Activity Level: Activity as Tolerated Activity Detail: Nothing vaginally for 6 weeks and see above Discharge Diet: Regular Follow Up Appointments[facility] [[facility] Group] Padmini García MD [Primary Care Provider] - Forms: [employer] Info Instructions
[2022-01-15] MEDS: IBUPROFEN 600 MG TABLET PO (12:43)
== END 2022-01-15 15:00 | disposition home or self-care (01) | DRG 542 ==
PROVIDERS: Obstetrics & Gynecology; Admitting Provider Obstetrics & Gynecology; PCP Pediatrics; Visit Provider Obstetrics & Gynecology
DX: O36.5930 Maternal care for other known or suspected poor fetal growth, third trimester, not applicable or unspecified (principal); O72.1 Other immediate postpartum hemorrhage; O13.4 Gestational [pregnancy-induced] hypertension without significant proteinuria, complicating childbirth; O99.344 Other mental disorders complicating childbirth; F32.A Depression, unspecified; F41.9 Anxiety disorder, unspecified; F98.8 Other specified behavioral and emotional disorders with onset usually occurring in childhood and adolescence; M25.551 Pain in right hip; Z37.0 Single live birth; Z3A.38 38 weeks gestation of pregnancy
CPT/HCPCS: 01967; 36415; 36430; 82565; 84450; 84460; 84520; 85018; 85025; 85384; 85610; 85730; 86850; 86870; 86880; 86900; 86901; 86922; 87635; 88307; A9270; J2210; J2405; J2795; J7120; P9016; P9017

== ENCOUNTER 2022-02-03 13:07 | Outpatient (CLI) | payer BC, SELFPAY ==
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
--- NOTE | 2022-02-03 15:03 | P.LACCB_ITS ---
Consult Note - Mom Date of Visit Date of visit: 02/03/22 human resources consultant: Tign Mosley Visit Code: Visit Patient's Information Phone number: [phone] : 2 Para: 2 Allergies doxycycline Allergy (Intermediate, Verified 01/19/22 10:48) Facial swelling Mother's Medical History: Medical History (Updated 01/19/22 @ 12:35 by Cary Quintanilla MD) ADD (attention deficit disorder) Depression with anxiety IUGR (intrauterine growth restriction) affecting care of mother (normal spontaneous vaginal delivery) (01/13/22) hemorrhage, rec'd 2 units PRBC's Delivery Information Delivery type: Vaginal Weeks Gestation: 38.5 Gestational Age: AGA Weight: 2.693 kg Discharge Weight: 2.537 kg Baby's Information Baby's Age at Visit: 3 weeks Baby's Provider or Clinic: Dr. Marshall Jaundice: No Reason for Consult Reason for Consult: concern for mom's forceful let-down, ideas for starting a bottle Past Experience Past Experience: Yes (nursed older child exclusively for a few months) Current Frequency of Day Feedings: every 2 - 3 hours Frequency of Night Feedings: every 2 - 4 hours Both Breasts: No (is usually satisfied after one side) Suck: strong Latch: wide Length of Time: 15 - 20 minutes Pumping Pumping: Yes (will pump to empty after nursing if she feels baby didn't empty her) Supplementing EMB Supplement: No Formula Supplement: No Baby Elimination Number of Wet Diapers a Day: with every feeding Number of BM a Day: 4- 6 day; yellow and seedy Breast/Nipple Condition Breast Information: WNl Maternal Nipple Condition - Left: Common Nipple Maternal Nipple Condition - Right: Common Nipple Sore Nipples: No Onsite Pre-Feed weight: 3.3 kg Post-Feed weight: 3.408 kg Milk Transferred (mL): 108 Pre-Nursing Left Nipple: Within Normal Limits Pre-Nursing Right Nipple: Within Normal Limits Post-Nursing Left Nipple: Within Normal Limits Post-Nursing Right Nipple: Within Normal Limits Assessments/Interventions Assessments/Interventions: Met with mom and this now 3 week old baby for consult.? Mom with concerns re: a strong let-down and baby projectile vomiting.? Also with questions re: when and how she should introduce a bottle.? Baby is nursing every 2 - 4 hours for 15 - 20 minutes and she's usually satisfied with one side.? Mom pumps both sides to empty when she's uncomfortable after nursing; is currently freezing the milk.? She reports she thinks baby is better able to handle her flow if she nurses in the side lying or reclined position.? She also sometimes pumps for a few minutes before nursing which helps baby.? States baby has had projectile vomiting 2 - 3 times in the past three weeks; denies she ever seems to be in pain, it's just startling to POC.? Breasts WNL- symmetrical with rounded lower quadrants, intramammary distance is < 1.5 inches.? Nipples are everted and don't flatten or retract with compression; no damage noted.? She denies any nipple pain when baby is nursing. Baby has gained 42 grams/day since her last visit on 01/25.? Mom denies any caput/cephalohematoma at delivery and also thinks she has equal ROM when turning her head and moving her extremities.? Her palate seems a little more elevated than normal.? Her upper frenulum is somewhat tight, her lower frenulum wasn't visualized.? Baby has a strong suck on a finger but didn't consistently extend the tongue over the gum line; she easily extended it over the gum line at other times.? The tongue has good lateral movement.? Mom latched baby to both sides in the cradle hold.? Baby had a wide latch and took in almost all of the areola, mom was comfortable.? Baby nursed for 10 - 15 minutes before coming off on her own.? Mom latched her to the other side and baby nursed about 10 minutes transferring 108 ml (3.6 oz).? At this feeding there weren't any s/s of baby having trouble with mom's flow but reviewed that the ideas mom has already tried are the ones that would have been suggested.? Reviewed that as baby isn't regularly projectile vomiting, isn't in pain when she does spit-up, and is gaining weight appropriately there's really no need for concern.? Suggested mom continue to keep her upright for 10 - 15 minutes after feeding as this may help.? Reviewed that upper lip ties are controversial and as mom isn't in any pain when baby nurses and baby has a good latch, there's probably no need for further f/u.? Discussed that POC could introduce a bottle at around 4 weeks, giving it once/day or every few days.? Watched a short video on paced feeding together. Plan: 1. Continue to breastfeed ALD, offering both sides and using the ideas she has tried to slow her flow; this issue should start to resolve in the next several w eeks.? 2. Suggested she pump to comfort prn after nursing sessions and once baby is taking a bottle could pump to empty once/day or every few days. 3. When POC start giving a bottle, try paced feeding and a handout was given. 4. As mom was also worried about baby's gas, we reviewed this also usually starts to get better in the second month.? A handout on infant tummy massage was given. 5. Encouraged mom to consider Baby Talk and handout given on chest and back stretches.? Meds Home Medications and Allergies Home Medications Medication Instructions Recorded Confirmed Type acetaminophen 500 mg tablet 500 mg PO Q6H PRN 09/07/21 01/19/22 History docosahexaenoic acid 200 mg See Rx Instructions PO QDAY 09/07/21 01/19/22 History capsule ( DHA) ferrous gluconate 324 mg (38 mg 324 mg PO DAILY 09/07/21 01/19/22 History iron) tablet Allergies Allergy/AdvReac Type Severity Reaction Status Date / Time doxycycline Allergy Intermediate Facial Verified 01/19/22 10:48 swelling
== END 2022-02-03 13:08 | disposition home or self-care (01) ==
LOC: OB LAC 13:09
PROVIDERS: PCP Pediatrics; Visit Provider Obstetrics & Gynecology
DX: Z39.1 Encounter for care and examination of lactating mother (principal)
CPT/HCPCS: 99211

== ENCOUNTER 2022-03-27 10:00 | Outpatient (RCR) | payer BC, SELFPAY | END 2022-08-22 14:36 | disposition home or self-care (01) | PROVIDERS: PCP Pediatrics; Visit Provider Obstetrics & Gynecology | DX: N39.3 Stress incontinence (female) (male) (principal); N81.4 Uterovaginal prolapse, unspecified; M62.81 Muscle weakness (generalized); Z51.89 Encounter for other specified aftercare | CPT/HCPCS: 97110; 97140; 97162; 97535 ==

== ENCOUNTER 2022-12-18 13:53 | Emergency (ER) | payer BC, SELFPAY ==
[2022-12-18 14:00] VITALS: BP 114/79; PULSE 83; RESP 16; TEMP 36.3; O2SAT 97; BMI 19.5
--- NOTE | 2022-12-18 14:17 | CRLHL7_ITS ---
For Patients: As a result of the Cures Act, medical imaging exams and procedure reports are released immediately into your electronic medical record. You may view this report before your referring provider. If you have questions, please contact your health care provider. INDICATION: Neck pain TECHNIQUE: Cervical spine 3 view. COMPARISON: None FINDINGS: Bones: No evidence of fracture. Joints: Disc spaces are unremarkable. Mild straightening of the cervical spine. Soft tissues: Unremarkable. IMPRESSION: Mild straightening of the cervical spine which can be a physiologic variant or secondary to muscular spasm, otherwise unremarkable cervical spine series. Dictated by Vahe Simons MD @ 12/18/2022 3:24:52 PM (Electronically Signed)
[2022-12-18] MEDS: KETOROLAC 30 MG/ML inj IM (14:45)
--- NOTE | 2022-12-18 14:48 | ED.NURSE ---
Ice pack provided. Requesting to go to imaging by w/c.
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
[2022-12-18 16:14] VITALS: BP 114/79; PULSE 83; RESP 16; TEMP 36.3
== END 2022-12-18 16:15 | disposition home or self-care (01) ==
PROVIDERS: Emergency Provider Student in an Organized Health Care Education/Training Program
DX: S16.1XXA Strain of muscle, fascia and tendon at neck level, initial encounter (principal)
CPT/HCPCS: 72040; 96372; 99282; 99284; J1885

== ENCOUNTER 2023-02-07 10:30 | Outpatient (RCR) | payer BC, SELFPAY | END 2023-02-15 14:42 | disposition home or self-care (01) | PROVIDERS: Visit Provider Family Medicine | DX: M54.2 Cervicalgia (principal); Z51.89 Encounter for other specified aftercare | CPT/HCPCS: 97110; 97140; 97161 ==